=== PATIENT | female | born 1980 | race African-American/Black ===

== ENCOUNTER 2025-07-12 11:59 | Outpatient (CLI) | payer OTHER, SELFPAY ==
--- OUTSIDE RECORDS SUMMARY | 2024-02-22 08:30 | XMS_ITS ---
Author Organization [facility], Address [address] [facility] [address] [place] [address] Care Team Providers Care Cooker Soda Name Role Phone NO PCP, - Primary Care Provider Benito Helton Unavailable [phone] Encounters Encounter Location Date Provider Diagnosis [facility], [address] [facility] [address] [place] [address] 02/22/2024 Benito Strickland PLAN OF TREATMENT No Information
--- OUTSIDE RECORDS SUMMARY | 2024-03-28 08:30 | XMS_ITS ---
Author Organization [facility], Address [address] [facility] [address] [place] [address] Care Team Providers Care Economics Teacher Name Role Phone NO PCP, - Primary Care Provider Benito Helton Unavailable [phone] Encounters Encounter Location Date Provider Diagnosis [facility], [address] [facility] [address] [place] [address] 03/28/2024 Benito Strickland PLAN OF TREATMENT No Information
--- NOTE | ~2025-07-12 | XR_ITS ---
EXAMINATION: XR knee RT 3V, 07/12/2025 12:50 CDT HISTORY: chronic Pain in R Knee COMPARISON: No comparisons available. Findings: No acute fracture or malalignment. No significant degenerative changes. Soft tissues unremarkable. Impression: No acute fracture or malalignment. Reviewed, dictated and finalized at location A. Impression: No acute fracture or malalignment.
--- OUTSIDE RECORDS SUMMARY | 2025-07-12 12:09 | XMS_ITS | Encounter Summary ---
Author Organization [facility] Address [address] [place] [address] Care Team Providers Care Fast Food Server Name Role Phone Bryan Landon MD Primary Care Provider [phone] Reason for Visit * Auth/Cert (Routine) Specialty Diagnoses / Procedures Referred By Contac t Referred To Contact Diagnoses Diarrhea of presumed infectious origin Encounter for screening colonoscopy Family history of colon cancer in father Diarrhea of presumed infectious origin [R19.7] Encounter for screening colonoscopy [Z12.11] Family history of colon cancer in father [Z80.0] Procedures [place] COLONOSCOPY FLX DX W/COLLJ SPEC WHEN PFRMD COLONOSCOPY Referral ID Status Reason Start Date Expiration Date Visits Re quested Visits Authorized [id number] 1 1 Encounter Details Date Type Department Care Team (Late st Contact Info) Description 04/12/2025 Hospital Encounter [facility] [address] [place] [address] Ernestine Marmolejo MD [address] [place] [address] [address] [place] [address] Social History Tobacco Use Types Packs/Day Years Used Date Smoking Tobacco: Every Day Cigarettes Smokeless Tobacco: Never Alcohol Use Standard Drinks/Week Comments No 0 (1 standard drink = 0.6 oz pur e alcohol) AUDIT-C Answer Date Recorded Q1: How often do you have a drink containing alcohol? Never 03/14/2025 Q2: How many drinks containi ng alcohol do you have on a typical day when you are drinking? Patient does not drink Frequency of Binge Drinking Not on file 02/15 Personal Safety Answer Date Recorded Have you ever been in or are you currently in a harmful physical or emotional relationship or is someone making you feel afraid or unsafe? 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 Gender Identity Not on file Sexual Orientation Not on file documented as of this encounter Functional Status documented as of this encounter Plan of Treatment Not on file documented as of this encounter Visit Diagnoses Diagnosis Encounter for screening colonoscopy- Primary Diarrhea Family history of colon cancer in father documented in this encounter Admitting Diagnoses Diagnosis Diarrhea Family history of colon cancer in father Encounter for screening colonoscopy documented in this encounter Care Teams Fast Food Server Relationship Specialty Start Date End Date Bryan Landon MD PCP - General 02/22/17 documented as of this encounter
--- OUTSIDE RECORDS SUMMARY | 2025-07-12 12:09 | XMS_ITS | Clinical Summary ---
Author Organization [facility] Address [facility] [place] [address] Care Team Providers Care Drying Can Worker Name Role Phone Bryan Landon MD Primary Care Provider [phone] Allergies Active Allergy Reactions Criticality Noted Date Comments Aspirin Throat swelling Iodine Vomiting Hydrocodone Itching 08/30/2017 Ibuprofen Nausea Only Reaction: Nausea, Penicillin V Throat swelling 08/30/2017 Penicillins Throat swelling Prochlorperazine Other (see comment),Nausea Only 08/30/2017 Sodium Bicarbonate Vomiting 09/29/2017 Tramadol Nausea Only 08/30/2017 Medications famotidine 20 MG tablet Take 20 mg by mouth. 09/29/2017 Active hydrOXYzine 25 MG capsule TAKE ONE CAPSULE BY MOUTH 4 TIMES A DAY 08/25/2017 Active indomethacin 25 MG capsule TAKE 1 CAPSULE(S) 3 TIMES A DAY BY ORAL ROUTE WITH MEALS 08/04/2017 Active pantoprazole 40 MG tablet Take 40 mg by mouth. Active Active Problems Problem Noted Date Diagnosed Date Myofascial muscle pain 09/29/2017 Social History Tobacco Use Types Packs/Day Years Used Date Smoking Tobacco: Every Day Cigarettes 0.5 22 Started: 09/05/1995; Last attempted to quit: 09/05/2017 Smokeless Tobacco: Current Tobacco Cessation:Ready to Q uit: Yes; Counseling Given: Yes Alcohol Use Standard Drinks/Week Comments No 0 (1 standard drink = 0.6 oz pur e alcohol) Comments No Sex and Gender Information Value Date Recorded Sex Assigned at Not on file Legal Sex Female 7:29 PM CDT Gender Identity Not on file Sexual Orientation Not on file Last Filed Vital Signs Vital Sign Reading Time Taken Comments Blood Pressure 124/82 09/29/2017 12:39 PM LEAD QUALITY CONTROL TECHNICIAN Pulse 101 09/29/2017 12:39 PM LEAD QUALITY CONTROL TECHNICIAN Temperature 36.6 C (97.9 F) 09/29/2017 11:30 AM LEAD QUALITY CONTROL TECHNICIAN Respiratory Rate 20 09/29/2017 12:39 PM LEAD QUALITY CONTROL TECHNICIAN Oxygen Saturation 98% 09/29/2017 12:39 PM LEAD QUALITY CONTROL TECHNICIAN Inhaled Oxygen Concentration - - Weight 65.8 kg (145 lb) 09/29/2017 11:30 AM LEAD QUALITY CONTROL TECHNICIAN Height 157.5 cm (5' 2) 09/29/2017 11:30 AM LEAD QUALITY CONTROL TECHNICIAN Body Mass Index 26.52 09/29/2017 11:30 AM LEAD QUALITY CONTROL TECHNICIAN Plan of Treatment Health Maintenance Due Date Last Done Comments Cervical Cancer Screening Pa p Smear (Age 30 to 64) Every 3 Years 1982 Annual Physical 1985 Hepatitis C 2000 DTaP, Tdap and Td Vaccines ( 1 - Tdap) 2001 Hepatitis B Vaccines (1 of 3 - 19+ 3-dose series) 2001 Pneumococcal Vaccine: Pediat rics (0 to 5 Years) and At-Risk Patients (6 to 49 Years) (1 of 2 - PCV) 2001 HPV Vaccines (1 - 3-dose SCD M series) 2009 Cervical Cancer Screening Pa p with HPV Testing (Age 30 to 64) Every 5 Years 2012 Cervical Cancer Screening with HPV 2012 Mammogram Screening 2022 COVID-19 Vaccine ( - 2023-2 5 season) 2024 Meningococcal B Vaccine Aged Out No l onger eligible based on patient's age to complete this topic Meningococcal Vaccine Aged Out No kiesha sarabjit eligible based on patient's age to complete this topic RSV Immunizations Under 20 Months Aged Out No longer eligible based on patient's age to complete this topic Insurance 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
--- OUTSIDE RECORDS SUMMARY | 2025-07-12 12:09 | XMS_ITS | Clinical Summary ---
Author Organization [facility] Address [address] [place] [address] Care Team Providers Care Security Tech Name Role Phone Bryan Landon MD Primary Care Provider [phone] Allergies Active Allergy Reactions Criticality Noted Date Comments Aspirin Swelling Medium Cortisone Itching Low 10/12/2017 Hydrocodone Itching Low 08/30/2017 Ibuprofen Nausea only Reaction: Nausea, Naproxen Stomach upset Low 07/03/2023 Penicillin V Potassium Swelling Medium 08/30/2017 Penicillins Prochlorperazine Prochlorperazine Maleate Nausea only Low 08/30/2017 Sodium Bicarbonate Vomiting Low 09/29/2017 Tramadol Nausea Only 08/30/2017 Hydroxyzine Hcl Itching Low 06/03/2018 Medications FLUOXETINE 10 mg capsule Take 1 tablet/capsule (10 mg total) by mouth daily 3 Active SUMAtriptan (IMITREX) 50 mg tablet Take 1 tablet (50 mg total) by mouth daily as needed 11 019 Active albuterol HFA (PROVENTIL HFA,VENTOLIN HFA,PROAIR HFA) 90 mcg/actuation inhaler Inhale 2 puffs every 6 (six) hours as needed Active montelukast (SINGULAIR) 10 mg tablet Take 1 tablet (10 mg total) by mouth nightly for 10 doses 10 tablet Active gabapentin (NEURONTIN) 100 mg capsule TAKE 1 CAPSULE BY MOUTH THREE TIMES A DAY Active diazePAM (VALIUM) 5 mg tablet Take 1 tablet (5 mg total) by mouth every 12 (twelve) hours as needed for anxiety for up to 10 days 10 tablet 021 Active ergocalciferol (VITAMIN D) 50,000 unit capsule Take 1 capsule (50,000 Units total) by mouth once a week 023 Active dicyclomine (BENTYL) 20 mg tablet Take 1 tablet (20 mg total) by mouth 2 (two) times a day 20 tablet 024 Active nitrofurantoin monohydrate (MACROBID) 100 mg capsule Take 1 capsule (100 mg total) by mouth 2 (two) times a day 10 capsule [address] (PROTONIX) 40 mg EC tablet Take 1 tablet (40 mg total) by mouth daily 90 tablet 1 025 Active promethazine (PHENERGAN) 25 mg suppository Insert 1 suppository (25 mg total) into the rectum every 6 (six) hours as needed for nausea or vomiting 24 each 3 025 Active ondansetron ODT (ZOFRAN-ODT) 4 mg disintegrating tablet TAKE 1 TABLET BY MOUTH EVERY 8 HOURS NEEDED FOR NAUSEA AND VOMITING 20 tablet 025 Active metoclopramide (REGLAN) 10 mg tablet TAKE 1 TABLET BY MOUTH THREE TIMES A DAY 90 tablet 2 025 Active metoclopramide (REGLAN) 10 mg tablet TAKE 1 TABLET BY MOUTH THREE TIMES A DAY 90 tablet 2 025 2024 Discontinued Active Problems Problem Noted Date Diagnosed Date Irritable bowel syndrome wit h both constipation and diarrhea 08/06/2024 Assessment & Plan (08/06/2024 2:02 PM CDT): Please on the poor prep were observed from previous colonoscopy I suspect she might have chronic constipation with overflow diarrhea. However given her main complaint with diarrhea predominance we will go ahead and order stool studies. We will also check KUB for stool burden. We will reschedule colonoscopy. Encounter for screening colonoscopy 08/02/2024 Family history of colon cancer in father 023 Weight loss 07/28/2023 Epigastric hernia 07/21/2023 Assessment & Plan (07/21/2023 2:26 PM CDT): Clinically the patient has a small bulge in the epigastrium. This is able to be reduced. We have discussed several options with the patient. Given the small nature of the defect we have discussed just primarily closure. We have also discussed correction with a mesh. She would like the most definitive repair. We will therefore proceed with a robotic assisted epigastric hernia repair with mesh placement. We have discussed postoperative restrictions and time needed off work. All questions answered. Abdominal pain 07/03/2023 Assessment & Plan (08/06/2024 2:00 PM CDT): Symptoms usually start off with periumbilical pain followed by nausea and vomiting, sometimes with diarrhea, no hematochezia or melena. Hx of umbilical hernia repair as a child, feels like pain related to hernia. Since last office visit, had 2 ED visits for nausea vomiting and epigastric pain. Most recently 05/2024. CT abdomen pelvis without contrast did not show any acute findings, there was posterior wall thickening of the bladder, UA was negative for infection Labs from 05/2024 showed essentially normal CMP, TSH, mildly elevated WBC of 12.8 otherwise normal CBC Previously had normal ESR, CRP and TSH from 2022 EGD and colonoscopy 07/2023, where EGD showed normal esophagus, mild chronic inactive gastritis, normal duodenum. Colon was poorly prepped unable to finished exam due to solid stool Gastric emptying study from 09/14 incomplete due to severe diarrhea because of egg allergy Normal celiac serology Plan Ddx include constipation with overflow diarrhea, mild gastritis, gastroparesis, umbilical hernia, colitis, cannabinoid induced, functional Continue reglan 10 mg TID, we discussed the potential terminal manager effects of the medication and patient expressed understanding Check KUB for stool burden Continue pantoprazole 40 mg daily Repeat colonoscopy Follow up with surgery for umbilical hernia repair Assessment & Plan (10/17/2023 11: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 Hx of umbilical hernia repair as a child, feels like pain related to hernia. However had multiple noncontrast CTs over the past month that did not show hernia. CT with contrast from 2018 showed mild colitis. Labs from most recent ED visit 06/2023 showed mildly decreased potassium 3.2 otherwise normal CMP, mildly elevated WBC 12.2 otherwise normal hemoglobin, drug screen positive for benzo marijuana EGD and colonoscopy 07/2023, where EGD showed normal esophagus, mild chronic inactive gastritis, normal duodenum. Colon was poorly prepped unable to finished exam due to solid stool Gastric emptying study from 09/14 incomplete due to severe diarrhea because of egg allergy Normal celiac serology Plan Ddx include mild gastritis, gastroparesis, umbilical hernia, colitis, cannabinoid induced, functional Continue reglan 10 mg TID Refill pantoprazole 40 mg daily Reschedule repeat colonoscopy after clearance with spine surgery Follow up with surgery for umbilical hernia repair Assessment & Plan (07/04/2023 10:41 AM CDT): Symptoms usually start off with periumbilical pain followed by nausea and vomiting, sometimes with diarrhea, no hematochezia or melena. Hx of umbilical hernia repair as a child, feels like pain related to hernia. However had multiple noncontrast CTs over the past month that did not show hernia. CT with contrast from 2018 showed mild colitis. No previous EGD or colonoscopy. Labs from most recent ED visit 06/2023 showed mildly decreased potassium 3.2 otherwise normal CMP, mildly elevated WBC 12.2 otherwise normal hemoglobin, drug screen positive for benzo marijuana Plan Will schedule EGD and colonoscopy Check celiac panel Refer to surgery for evaluation of umbilical hernia per patient request. Intractable nausea and vomiting 07/03/2023 Diarrhea 07/03/2023 Family hx of colon cancer 07/03/2023 Left-sided chest wall pain 07/08/2022 Gastroenteritis 02/15/2022 Cervical dysplasia 12/07/2017 Overview (04/30/2021): Note: Unchanged Atypical squamous cells of u ndetermined significance (ASCUS) on Papanicolaou smear of cervix 11/24/2017 Overview (04/30/2021): Note: Unchanged Anemia 11/03/2017 Cyst of ovary 11/03/2017 Overview (04/30/2021): Note: Unchanged Gastroesophageal reflux disease with esophagitis 11/03/2017 Overview (04/30/2021): Note: Unchanged Leiomyoma of uterus 11/03/2017 Overview (04/30/2021): Note: Unchanged Myofascial muscle pain 09/29/2017 GERD (gastroesophageal reflux disease) 7 Assessment & Plan (07/04/2023 10:46 AM CDT): Still having acid reflux despite being on famotidine 20 mg BID and protonix 40mg three times a day. Will schedule EGD for further evaluation. Counseled on antireflux lifestyle modifications. Continue protonix and famotidine. Anxiety state 09/16/2017 Migraine without aura 09/16/2017 Type 2 or unspecified type diabetes mellitus 11/2016 Nausea and vomiting Assessment & Plan (10/17/2023 11:20 AM PACK MULE WORKER): Per initial consult note N/v started in 2017 did well after starting protonix then worsened 2020 thinks resulted from food poisoning. Numerous ED visits since 2018 for n/v and abdominal pain she has had [address] abdomen pelvis with no acute findings. Labs from most recent ED visit 06/2023 showed mildly decreased potassium 3.2 otherwise normal CMP, mildly elevated WBC 12.2 otherwise normal hemoglobin, drug screen positive for benzo marijuana Symptoms usually start off with periumbilical pain followed by nausea and vomiting, sometimes with diarrhea, no hematochezia or melena Mostly eating vegetables, turkey and fish Red meat, pork and chicken makes her gag Avoids greasy fast foods, canned foods, juice, gatorade Drinks 1-2 diluted energy drinks a day, herbal green tea and water Currently taking reglan twice daily, zofran as needed if reglan not working, also did 4 days of carafate not sure if helped Still having acid reflux despite being on famotidine 20 mg BID and protonix 40mg three times a day recently finished course of abx for UTI Lost about 30 lbs recently No NSAID use Father with colon cancer at 56 Smokes 1/2 pack a day, uses edible marijuana, no ETOH Since last visit had EGD and colonoscopy 07/2023 EGD showed normal esophagus, mild chronic inactive gastritis, normal duodenum. Colon was poorly prepped unable to finished exam due to solid stool Gastric emptying study from 09/14 incomplete due to severe diarrhea because of egg allergy Normal celiac serology Had spine surgery 08/21/2023 with placement of two artificial disc had to postpone repeat colonoscopy. Seen by surgery for umbilical hernia, to be scheduled after clearance from spine surgery Takes reglan feels like helping some with nausea and vomiting, still having intermittent abdominal pain, bentyl seems to be helping. Alternating constipation and diarrhea with predominantly constipation, takes miralax daily Plan Ddx include cannabinoid hyperemesis syndrome, gastroparesis, functional n/v, psychogenic, centrally mediated etc. Again discussed marijuana cessation continue zofran and reglan and reflux medications Assessment & Plan (07/04/2023 10:44 AM CDT): N/v started in 2017 did well after starting protonix then worsened 2020 thinks resulted from food poisoning. multiple ED visits since 2018. Patient had 3 ED visits over the last month related nausea vomiting and abdominal pain. She has had [address] abdomen pelvis with no acute findings. Labs from most recent ED visit 06/2023 showed mildly decreased potassium 3.2 otherwise normal CMP, mildly elevated WBC 12.2 otherwise normal hemoglobin, drug screen positive for benzo marijuana Symptoms usually start off with periumbilical pain followed by nausea and vomiting, sometimes with diarrhea, no hematochezia or melena Mostly eating vegetables, turkey and fish Red meat, pork and chicken makes her gag Avoids greasy fast foods, canned foods, juice, gatorade Drinks 1-2 diluted energy drinks a day, herbal green tea and water Currently taking reglan twice daily, zofran as needed if reglan not working, also did 4 days of carafate not sure if helped Still having acid reflux despite being on famotidine 20 mg BID and protonix 40mg three times a day recently finished course of abx for UTI Lost about 30 lbs recently No NSAID use Father with colon cancer at 56 Smokes 1/2 pack a day, uses edible marijuana, no ETOH Plan Ddx include GERD, esophagitis, cannabinoid hyperemesis syndrome, gastroparesis, functional n/v, psychogenic, centrally mediated etc. Will schedule EGD, continue zofran and reglan and reflux medications for now Food poisoning Encounters Date Type Department Care Team Description 04/12/2025 Hospital Encounter [facility] [address] [place] [address] Ernestine Marmolejo MD 04/11/2025 Telephone [facility] at [place] [address] [address] [place] [address] Cristy Tanner Colonoscopy Cancel from Last 3 Months Immunizations Immunization Administration Dates Next Due PPD TEST 02/24/2022 Surgical History Surgery Date Site/Laterality Comments CHOLECYSTECTOMY TUBAL LIGATION COLONOSCOPY 11/16/2017 - 11/15/2018 SIGMOIDOSCOPY 07/17/2023 - 08/15/2023 Medical History Medical History Date Comments GERD (gastroesophageal reflux disease) Cancer (HCC) Marijuana use Cyclical vomiting Asthma Family History Medical History Relation Name Comments Cancer Father Heart disease Mother Hypertension Mother Relation Name Status Comments Father Mother Social History Tobacco Use Types Packs/Day Years Used Date Smoking Tobacco: Every Day Cigarettes Smokeless Tobacco: Never Tobacco Cessation:Ready to Q uit: Not Asked; Counseling Given: Not Answered Alcohol Use Standard Drinks/Week Comments No 0 [...] on file Legal Sex Female 1:37 AM PACK MULE WORKER Gender Identity Not on file Sexual Orientation Not on file Obstetrics History Last Filed Vital Signs Vital Sign Reading Time Taken Comments Blood Pressure 98/68 03/14/2025 2:17 PM CDT Pulse 82 03/14/2025 2:17 PM CDT Temperature 37.3 C (99.2 F) 03/03/2025 1:48 AM CDT Respiratory Rate 20 03/03/2025 1:48 AM CDT Oxygen Saturation 98% 03/14/2025 2:17 PM CDT Inhaled Oxygen Concentration - - Weight 49.5 kg (109 lb 3.2 oz) 03/14/2025 2:17 P M CDT Height 157.5 cm (5' 2) 03/14/2025 2:17 PM CDT Body Mass Index 19.97 03/14/2025 2:17 PM CDT Plan of Treatment Health Maintenance Due Date Last Done Comments Albumin Creatinine Ratio, Urine 1982 Breast Cancer Screening-Mammogram 1982 Cervical Cancer Screening 1982 Depression Screening 1982 Hemoglobin A1C 1982 Dilated Eye Exam 1982 Foot Exam 1982 Varicella Vaccines (1 of 2 - 13+ 2-dose series) 1995 DTaP/Tdap/Td Vaccine (6 - Tdap) 07/22/1997 07/21/1997, 07/24/1988, 11/20/1986, Additional history exists Regular Well Visit/Exam 18-64 2000 HPV Vaccines (1 - 3-dose SCD M series) 2009 Pneumococcal vaccine <65 (2 of 2 - PCV) 10/11/2014 10/11/2013 Lipid Panel 09/30/2016 09/30/2015, 02/03/2014 Covid-19 Vaccine (3 - 2023-2 5 season) 2024 09/16/2021, 08/19/2021 Influenza Vaccine (#1) 2025 10/11/2013 eGFR 03/02/2026 03/02/2025, 0404/2025, 06/02/2024, Additional history exists Hepatitis B Screening Completed 01/13/2007 , 12/25/2006, 07/21/1997 Hepatitis C Screening Completed 05/27/2023, 017 Procedures Procedure Name Priority Date/Time Associated Diagnosis Comments EGFR STAT 03/02/2025 11:41 PM CDT HEPATITIS C ANTIBODY Routine 05/27/2023 4:27 PM CDT SERUM LIPID PANEL Routine 09/30/2015 11: 47 AM PACK MULE WORKER from Last 3 Months or Most Recently Relevant to Health Maintenance Results * eGFR (03/02/2025 11:41 PM CDT) eGFR >90 >=60 mL/min/1. 73 m2 Comment: Interpretive Data Reference Interval Normal >/= 90 mL/min/1.73m2 Mildly decreased* 60 - 89 mL/min/1.73m2 Mildly to moderately decreased 45 - 59 mL/min/1.73m2 Moderately to severely decreased 30 - 44 mL/min/1.73m2 Severely decreased 15 - 29 mL/min/1.73m2 Kidney Failure < 15 mL/min/1.73m2 *Relative to young adult level Estimated glomerular filtration rate is determined by the 2020 CKD-EPI equation recommended by the National Kidney Foundation (A Unifying Approach to GFR Estimation: Recommendations of the NKF-ASK Task Force on Reassessing the Inclusion of Race in Diagnosing Kidney Disease, JASN 2020). The CKD-EPI equation should not be used for patients with unstable renal function and has not been validated in children and those over 70. Current interpretive data was last reviewed 2021. Blood 03/02/2025 11:4 1 PM CDT 03/02/2025 11:44 PM CDT us Maximo Murillo MD LAB BLOOD ORDERABLES Final Re sult [facility] [address] [facility] Department [place] [address] * Hepatitis C antibody (05/27/2023 4:27 PM CDT) Hep C Ab Nonreactive Nonreactive [facility] Comment: Interpretive Data Nonreactive: Antibodies to HCV not detected. Does NOT exclude the possibility of recent exposure to HCV. Equivocal: Equivocal for HCV antibodies. Supplemental molecular testing will be automatically performed to determine infection status in accordance with current CDC screening recommendations. Reactive: Positive for HCV antibodies. This may represent current or past HCV infection. Supplemental molecular testing will be automatically performed to determine current infection status in accordance with current CDC screening recommendations. Interpretive data was last revised on 2020. Blood 05/27/2023 4:27 PM CDT 05/27/2023 4:43 PM CDT Lon Valle MD LAB MICROBIOLOGY - GENERAL OR DERABLES Final Result [facility] [id number] [facility] [facility] Department [place] [address] * Serum lipid panel (09/30/2015 11:47 AM PACK MULE WORKER) Cholesterol 185 40 - 199 mg/dl HISTORICAL RESULTS Comment: Interpretive Data Desirable: Less than 200 mg/dl Borderline High: 200 - 239 mg/dl High: Greater than 239 mg/dl Current interpretive data was last revised on 2015. Triglycerides 42 <=150 mg/dl HISTORICAL RESULTS Comment: Interpretive Data Normal: Less than 150 mg/dl Borderline high: 105-199 mg/dl High: 200-499 mg/dl Very high: Greater than or equal to 500 mg/dl Current interpretive data was last revised on 2015. HDL 55 40 - 60 mg/dl HISTORICAL RESULTS Comment: Interpretive Data Low HDL Cholesterol: Less than 40 mg/dl Normal HDL Cholesterol: 40-60 mg/dl High HDL Cholesterol: Greater than 60 mg/dl Current interpretive data was last revised on 2015. LDL 122 mg/dl HISTORICAL RESULTS Comment: Interpretive Data Optimal Less than 100 mg/dL Near optimal/Above optimal 100 - 129 mg/dL Borderline high 130 - 159 mg/dL High 160 - 189 mg/dL Very high Greater than or = 190 mg/dL LDL values are not valid when the total Triglyceride is greater than 300 mg/dL. Current interpretive data was last revised on 2015. Non-HDL cholesterol, calculated 130 mg/dl HISTORICAL RESULTS Comment: Interpretive Data Optimal Less than 130 mg/dL Low Risk 130 - 159 mg/dL Moderate Risk 160 - 189 mg/dL High Risk Greater than or equal to 190 mg/dL Current interpretive data was last revised on 2015. Serum 09/30/2015 11:4 7 AM PACK MULE WORKER us Historical Provider LAB BLOOD ORDERABLES Sharonda l Result HISTORICAL RESULTS from Last 3 Months or Most Recently Relevant to Health Maintenance Insurance [facility] [place] [address] [facility] Advance Directives For more information, please contact: [phone] * Full Code (Latest Code Status on File) Date Activated Date Inactivated Comments 07/23/2023 9:07 AM 07/23/2023 3:01 PM * Full Code Date Activated Date Inactivated Comments 07/23/2023 9:06 AM 07/23/2023 9:07 AM * Full Code Date Activated Date Inactivated Comments 02/15/2022 10:13 PM 02/16/2022 6:03 PM * Full Code Date Activated Date Inactivated Comments 02/15/2022 9:29 PM 02/15/2022 10:13 PM Care Teams Security Tech Relationship Specialty Start Date End Date Bryan Landon MD PCP - General 02/22/17
--- OUTSIDE RECORDS SUMMARY | 2025-07-12 12:09 | XMS_ITS | Clinical Summary ---
Author Organization [facility] Address [address] [place] [address] Phone Care Team Providers Care Hospital Unit Coordinator Name Role Phone Bryan Landon MD Primary Care Provider [phone] Allergies Active Allergy Reactions Criticality Noted Date Comments Prochlorperazine Maleate Nausea 08/30/2017 Cortisone Itching 10/12/2017 Hydrocodone Itching 08/30/2017 Penicillin V Potassium Swelling 08/30/2017 Medications pantoprazole (PROTONIX) 40 MG Tablet Delayed Response Take 40 mg by mouth daily. Active ondansetron (ZOFRAN) 4 MG Tablet Take 1 Tab by mouth every 8 hours as needed for Nausea. 10 Tab 7 Active Meloxicam 15 MG Tablet Take 1 Tab by mouth daily. 10 Tab 7 Active famotidine (PEPCID) 20 MG Tablet Take 1 Tab by mouth 2 times daily as needed. 30 Tab 7 Active fluconazole (DIFLUCAN) 200 MG Tablet Take 1 Tab by mouth daily. 10 Tab 7 Active albuterol (PROVENTIL HFA, VENTOLIN HFA) 108 (90 Base) MCG/ACT Aerosol Solution take 2 Puffs by inhalation every 6 hours as needed for Wheezing. 1 Inhaler 7 Active ibuprofen (MOTRIN) 800 MG Tablet Take 1 Tab by mouth every 6 hours as needed for Pain. 40 Tab 8 Active BUSPIRONE HCL PO Take by mouth. Activ e ALPRAZolam (XANAX) 0.25 MG Tablet Take 1 Tab by mouth 2 times daily as needed for Anxiety. 20 Tab 9 Active acetaminophen-c odeine (TYLENOL #3) 300-30 MG Tablet Take 1 Tab by mouth every 6 hours as needed for Severe pain for up to 10 doses. 10 Tab 9 Active baclofen (LIORESAL) 10 MG Tablet TAKE 1 TABLET BY MOUTH TWICE A DAY 2 9 Active FLUoxetine (PROZAC) 10 MG Capsule TAKE 1 CAPSULE BY MOUTH EVERY DAY 3 9 Active methylPREDNISol one (MEDROL DOSPACK) 4 MG Tablet Therapy Pack See product package insert for dosing schedule 21 Tab 9 Active methocarbamol (ROBAXIN) 500 MG Tablet Take 2 Tabs by mouth 4 times daily. 15 Tab 9 Active ketorolac (TORADOL) 10 MG Tablet Take 1 Tab by mouth every 6 hours as needed for Mild or more severe pain. 10 Tab 9 Active traMADol (ULTRAM) 50 MG Tablet Take 1-2 Tabs by mouth every 6 hours as needed for Moderate or more severe pain. 20 Tab 0 Active oxyCODONE-aceta minophen (Percocet) 5-325 MG Tablet Take 1 Tab by mouth every 8 hours as needed for Severe pain. 12 Tab 0 Active gabapentin (NEURONTIN) 100 MG Capsule Take 100 mg by mouth 3 times daily. Active naproxen (NAPROSYN) 500 MG Tablet Take 500 mg by mouth 2 times daily (with meals). Active meloxicam (MOBIC) 7.5 MG Tablet Take 1 Tab by mouth daily. 30 Tab 1 Active Family History Medical History Relation Name Comments Hypertension Father Liver Cancer Father Relation Name Status Comments Father Social History Tobacco Use Types Packs/Day Years Used Date Smoking Tobacco: Every Day Cigarettes E-Vapor with Nicotine Smokeless Tobacco: Never Alcohol Use Standard Drinks/Week Comments No 0 (1 standard drink = 0.6 oz pur e alcohol) Comments No Sex and Gender Information Value Date Recorded Sex Assigned at Not on file Legal Sex Female 10:54 PM CDT Gender Identity Not on file Sexual Orientation Not on file Last Filed Vital Signs Vital Sign Reading Time Taken Comments Blood Pressure 122/82 12/15/2020 1:15 PM CUFFING MACHINE OPERATOR Pulse 78 12/15/2020 1:30 PM CUFFING MACHINE OPERATOR Temperature 36.4 C (97.5 F) 12/15/2020 1:15 PM CUFFING MACHINE OPERATOR Respiratory Rate 18 12/15/2020 11:25 AM CUFFING MACHINE OPERATOR Oxygen Saturation 100% 12/15/2020 1:30 PM CUFFING MACHINE OPERATOR Inhaled Oxygen Concentration - - Weight 68 kg (150 lb) 12/15/2020 11:25 AM CUFFING MACHINE OPERATOR Height 157.5 cm (5' 2) 12/15/2020 11:25 AM CUFFING MACHINE OPERATOR Body Mass Index 27.44 12/15/2020 11:25 AM CUFFING MACHINE OPERATOR Plan of Treatment Health Maintenance Due Date Last Done Comments Hepatitis C Virus (HCV) Screening 1982 TdaP Immunization 1982 Pap Smear 2003 Hepatitis B Immunization (2 of 3 - 3-dose series) 02/10/2007 01/13/2007, 12/25/2006, 07/21/1997 Human Papillomavirus (HPV) Immunization (1 - 3-dose SCDM series) 2009 Cervical Cancer Screening (CCS) 2012 HPV/Cotest 2012 SARS-COV-2 Immunization ( season) 2024 09/16/2021, 08/19/2021 Influenza Immunization (#1) 2025 10/11/2013 Respiratory Syncytial Virus (RSV) Immunization (Adult) (1 - 1-dose 75+ series) 2057 DTaP/Tdap/Td Immunization Discontinued 1996, 07/24/1988, 11/20/1986, Additional history exists Pneumococcal Immunization Combined Aged Out 10/11/2013 No longer eligible based on patient's age to complete this topic Meningococcal Immunization (ACWY) Aged Out No longer eligible based on patient's age to complete this topic Rotavirus Immunization Aged Out No lo nger eligible based on patient's age to complete this topic Insurance MEDICAID [employer] [facility] Care Teams Hospital Unit Coordinator Relationship Specialty Start Date End Date Bryan Landon MD [address] [place] [address] PCP - General Family Medicine 08/31/17
--- OUTSIDE RECORDS SUMMARY | 2025-07-12 12:09 | XMS_ITS | Patient Health Record ---
Author Organization [facility], Address [address] [place] [address] Care Team Providers Care Nurse Informatics Educator Name Role Phone NO PCP, - Primary Care Provider Benito Helton Unavailable [phone] ALLERGIES Allergen (clinical drug ingredient) Drug/Non Drug Allergy documented on EMR Reaction Allergy Type Onset Date Status Penicillin Unknown Drug Allergy Active Compazine Unknown Drug Allergy Active REASON FOR REFERRAL No Information PLAN OF TREATMENT No Information Insurance Providers Payer Name Payer Address Payer Phone Subscriber Number Group Number Insured Name Patient Relationship to Insured Coverage Start Date Coverage End Date [facility] [address] Located Within [facility] [address] [place] [address] [phone] [id number] Cherri Cheung Self - patient is the insured 1 MEDICAL (GENERAL) HISTORY Medical History History ICD Code Low Blood Pressure Asthma SOB Chronic Cough Anemia Gastritis Constipation Arthritis Neck Pain Numbness in hands Depression Anxiety
== END 2025-07-12 12:00 | disposition home or self-care (01) ==
PROVIDERS: PCP Family Medicine; Visit Provider Family Medicine
DX: M25.561 Pain in right knee (principal)
CPT/HCPCS: 73562